=== PATIENT | female | born 2000 | race Caucasian/White ===

== ENCOUNTER 2019-07-03 15:25 | Emergency (ER) | payer SELFPAY ==
[~2019-07-03] VITALS: Ht 177.8 cm; Wt 147.8 kg
--- NOTE | 2019-07-03 15:48 | ED Cough/URI ---
General Chief Complaint: Cough/Cold/Flu Symptoms Stated Complaint: FLU SYMPTOMS Source: patient Exam Limitations: no limitations History of Present Illness Date Seen by Provider: Jul 03, 2019 Time Seen by Provider: 15:35 Initial Comments The patient is a pleasant obese 18-year-old female who presents for evaluation of 2-3 days of fever, nasal congestion, cough, general malaise, bilateral ear discomfort, and a few episodes of nausea and vomiting. She states that she is not currently nauseous. She states that her last fever was yesterday. She was recently exposed to influenza at work and did not receive the vaccination this season. She denies chest pain or shortness of breath, abdominal or back pain, urinary complaints, hematemesis, rectal bleeding, headache, neck pain or neck stiffness, dizziness or syncope. She is alert and oriented 4, calm, and appears to be in no distress this time. Timing/Duration: other (2-3 days) Severity/Quality: dry cough Associated Symptoms: cough, earache, facial pain, fever/chills, muscle aches, nasal congestion, nasal drainage Allergies and Home Medications Allergies Coded Allergies: No Known Drug Allergies (Unverified , 07/03/19) Patient Home Medication List Home Medication List Reviewed: Yes Review of Systems Review of Systems Constitutional: chills, fever EENTM: ear pain Respiratory: cough Cardiovascular: no symptoms reported Gastrointestinal: nausea, vomiting (yesterday, none today) Genitourinary: no symptoms reported Musculoskeletal: no symptoms reported Skin: no symptoms reported Psychiatric/Neurological: No Symptoms Reported Hematologic/Lymphatic: No Symptoms Reported Immunological/Allergic: no symptoms reported All Other Systems Reviewed Negative Unless Noted: Yes Past Cknlfbn-Rixwiy-Epiedb Hx Past Med/Social Hx: Reviewed Nursing Past Med/Soc Hx Patient Social History Alcohol Use: Denies Use Recreational Drug Use: No Smoking Status: Current Everyday Smoker 2nd Hand Smoke Exposure: No Recent Foreign Travel: No Contact w/Someone Who Travel: No Recent Hopitalizations: No Physical Abuse: No Sexual Abuse: No Mistreated: No Fear: No Seasonal Allergies Seasonal Allergies: No Past Medical History Surgeries: No Respiratory: No Cardiac: Yes Hypertension Neurological: No Genitourinary: No Gastrointestinal: No Musculoskeletal: No Endocrine: No HEENT: No Cancer: No Psychosocial: Yes Depression Integumentary: No Blood Disorders: No Physical Exam Vital Signs - First Documented 07/03/19 15:30 Temp 36.0 Pulse 100 Resp 16 B/P (MAP) 152/124 (133) Pulse Ox 98 O2 Delivery Room Air Capillary Refill : Height: '" Weight: lbs. oz. kg; BMI Method: General Appearance: WD/WN, no apparent distress, obese Eyes: Bilateral Eye Normal Inspection, Bilateral Eye PERRL, Bilateral Eye EOMI HEENT: PERRL/EOMI, normal ENT inspection, pharynx normal, TM abnormal (R) (mild erythema, no bulging) Respiratory: chest non-tender, lungs clear, normal breath sounds, no respiratory distress, no accessory muscle use Cardiovascular: no edema, no gallop, no JVD, tachycardia Gastrointestinal: normal bowel sounds, non tender, soft Extremities: normal range of motion, non-tender, normal inspection, no pedal edema Neurologic/Psychiatric: independent consultant II-XII nml as tested, no motor/sensory deficits, alert, normal mood/affect, oriented x 3 Skin: normal color, warm/dry Progress/Results/Core Measures Suspected Sepsis SIRS Temperature: Pulse: Respiratory Rate: Blood Pressure / Mean: Results/Orders Micro Results Microbiology 07/03/19 Influenza Types A,B Antigen (JENNIFER) - Final, Complete My Orders Orders - EMMA VAZQUEZ DO Influenza A And B Antigens (07/03/19 15:35) Vital Signs/I&O 07/03/19 07/03/19 15:30 15:30 Temp 36.0 Pulse 100 Resp 16 B/P (MAP) 152/124 (133) Pulse Ox 98 O2 Delivery Room Air Room Air Capillary Refill : Progress Note : Progress Note @1615 - patient updated on influenza test which is negative. She does have evidence on physical examination of a right-sided otitis media. She'll be prescribed amoxicillin. Advised patient to follow up with her PCP in the next 1- 2 days and to return to the Emergency Department immediately for new or worsening symptoms. Workup today fails to reveal any emergent pathology and the patient is stable for discharge home. Departure Impression Primary Impression: Right otitis media Additional Impression: Flu-like symptoms Disposition: HOME, SELF-CARE Condition: Stable Departure-Patient Inst. Decision time for Depature: 16:18 [facility]: [facility] [place]ructions: Viral Upper Respiratory Infection, Adult (DC), Ear Infections (Otitis Media) Add. Discharge Instructions: Take the prescribed medicine as directed for the ear infection. Your flu test was negative today. Return to the emergency Department immediately for new or worsening symptoms. Follow-up with your doctor in the next 2-3 days. Scripts Amoxicillin (Amoxicillin) 875 Mg Tablet 875 MG PO BID for 10 Days, #20 TAB Prov: EMMA VAZQUEZ DO 07/03/19 EMMA VAZQUEZ DO Jul 03, 2019 15:48
[2019-07-03] MEDS ORDERED: AMOX875T2 PO (16:19)
[2019-07-03 16:29] VITALS: BP 152/124
== END 2019-07-03 16:29 | disposition home or self-care (01) ==
LOC: ER FS 15:27
DX: H66.91 Otitis media, unspecified, right ear (principal); R50.9 Fever, unspecified; R05 Cough; R09.81 Nasal congestion; F17.200 Nicotine dependence, unspecified, uncomplicated
CPT/HCPCS: 87804

== ENCOUNTER 2020-08-22 14:01 | Emergency (ER) | payer SELFPAY ==
[~2020-08-22 14:01] MED LIST: AMOX875T2 PO
== END 2020-08-22 14:16 | disposition left against medical advice (07) ==
LOC: EDUNIT# 14:01 → ER FS 14:03
DX: Z13.39 Encounter for screening examination for other mental health and behavioral disorders (principal)

== ENCOUNTER 2020-08-26 11:40 | Emergency (ER) | payer SELFPAY | END 2020-08-26 11:53 | disposition left against medical advice (07) | LOC: EDUNIT# 11:40 → ER FS 11:51 | DX: R05 Cough (principal) ==

== ENCOUNTER 2020-09-17 20:22 | Emergency (ER) | payer SELFPAY ==
[~2020-09-17] VITALS: Ht 180 cm; Wt 158.0 kg
[2020-09-17 20:30] VITALS: BP 159/99
== END 2020-09-17 20:40 | disposition left against medical advice (07) ==
LOC: EDUNIT# 20:22 → ER 20:24
DX: F99 Mental disorder, not otherwise specified (principal)
CPT/HCPCS: 99283

== ENCOUNTER 2020-10-05 17:25 | Emergency (ER) | payer SELFPAY ==
[2020-10-05 18:00] LABS: BASOPHILS % (AUTO) 0 % (0-10); EOSINOPHILS # (AUTO) 0.1 10^3/uL (0.0-0.3); EOSINOPHILS % (AUTO) 1 % (0-10); HEMATOCRIT 41 % (35-52); HEMOGLOBIN 13.6 G/DL (11.5-16.0); LYMPHOCYTES # (AUTO) 3.2 X 10^3 (1.0-4.0); LYMPHOCYTES % (AUTO) 36 % (12-44); MEAN CORPUSCULAR HEMOGLOBIN 31 PG (25-34); MEAN CORPUSCULAR HGB CONC 33 G/DL (32-36); MEAN CORPUSCULAR VOLUME 94 FL (80-99); MEAN PLATELET VOLUME 10.2 FL (7.4-10.4); MONOCYTES # (AUTO) 0.6 X 10^3 (0.0-1.0); MONOCYTES % (AUTO) 7 % (0-12); NEUTROPHILS # (AUTO) 4.9 X 10^3 (1.8-7.8); NEUTROPHILS % (AUTO) 56 % (42-75); PLATELET COUNT 303 10^3/uL (130-400); WHITE BLOOD COUNT 8.8 10^3/uL (4.3-11.0)
[2020-10-05 18:11] LABS: AMPHETAMINE SCREEN, URINE NEGATIVE (NEGATIVE); BACTERIA,URINE TRACE /HPF; BARBITURATE SCREEN URINE NEGATIVE (NEGATIVE); BENZODIAZEPINES SCREEN URINE NEGATIVE (NEGATIVE); BILIRUBIN,URINE NEGATIVE (NEGATIVE); CANNABINOID SCREEN, URINE POSITIVE (NEGATIVE); CLARITY,URINE CLEAR; COCAINE SCREEN URINE NEGATIVE (NEGATIVE); COLOR,URINE YELLOW; GLUCOSE, URINE (UA) NEGATIVE (NEGATIVE); KETONES,URINE NEGATIVE (NEGATIVE); LEUKOCYTE ESTERASE ,URINE NEGATIVE (NEGATIVE); METHADONE STAT NEGATIVE (NEGATIVE); METHAMPHETAMINE SCREEN URINE S NEGATIVE (NEGATIVE); NITRITE,URINE NEGATIVE (NEGATIVE); OPIATE SCREEN URINE NEGATIVE (NEGATIVE); OXYCODONE STAT NEGATIVE (NEGATIVE); PH,URINE 7.5 (5-9); PROPOXYPHENE STAT NEGATIVE (NEGATIVE); PROTEIN,URINE NEGATIVE (NEGATIVE); TRICYCLIC ANTIDEPRESSANTS SCRE NEGATIVE (NEGATIVE); WBC,URINE 0-2 /HPF
[2020-10-05 18:21] LABS: ALANINE AMINOTRANSFERASE 15 U/L (0-55); ALKALINE PHOSPHATASE 83 U/L (40-136); BILIRUBIN,TOTAL 0.2 MG/DL (0.1-1.0); BUN/CREATININE RATIO 10; CALCIUM 8.6 MG/DL (8.5-10.1); CARBON DIOXIDE 26 MMOL/L (21-32); CHLORIDE 105 MMOL/L (98-107); CREATININE SERUM 0.67 MG/DL (0.60-1.30); GFR ESTIMATED > 60; GLUCOSE 101 MG/DL (70-105); POTASSIUM 3.7 MMOL/L (3.6-5.0); SODIUM 142 MMOL/L (135-145); TOTAL PROTEIN 6.6 GM/DL (6.4-8.2)
--- NOTE | 2020-10-05 20:08 | ED General ---
General Chief Complaint: Psych/Social Disorder Stated Complaint: SUICIDAL IDEATION Nursing Triage Note: Patient is present with aunt. States she has been having suicidal thoughts as well as having thoughts of harming others. Is not currently having SI or HI. These feelings have been getting worse over the past 4-5 months since using bad meth. States she feels "like I am on [place]" and"like I am already ." Also states when it is dark she "feels like something is trying to come out of my body" and that she "is supposed to go into the darkness." Has a remote hx of attempted overdose that did not require medical treatment. Does not currently have a therapist or psychiatrist but has an appointment on 10/18 with [facility]. Has hx of bipolar but has not been on meds recently. Nursing Sepsis Screen: No Definite Risk Source of Information: Patient Exam Limitations: No Limitations History of Present Illness Date Seen by Provider: October 05, 2020 Time Seen by Provider: 15:30 Initial Comments Patient is a 19-year-old female who presents with suicidal thoughts. She has thoughts of harming herself but does not have a specific plan. She has also had thoughts of hurting others but does not have a specific plan. She reports conflict with her mother. She states over the past 4 to 5 months she has been using methamphetamines and having visual hallucinations. She also feels as though she feels her flashes . She denies auditory hallucinations, paranoia and command hallucinations. No recent medical illness. Reports methamphetamine and marijuana use in the past several days. Timing/Duration: 12-24 Hours Severity: Moderate Modifying Factors: improves with Other Associated Systoms: Other Allergies and Home Medications Allergies Coded Allergies: No Known Drug Allergies (Unverified , 07/03/19) Home Medications Amoxicillin 875 Mg Tablet, 875 MG PO BID Prescribed by: EMMA VAZQUEZ on 07/03/19 1619 Patient Home Medication List Home Medication List Reviewed: Yes Review of Systems Review of Systems Constitutional: see HPI EENTM: see HPI Respiratory: see HPI Cardiovascular: see HPI Gastrointestinal: see HPI Genitourinary: see HPI Musculoskeletal: see HPI Skin: see HPI Psychiatric/Neurological: See HPI Hematologic/Lymphatic: See HPI Immunological/Allergic: see HPI All Other Systems Reviewed Negative Unless Noted: Yes Past Mgeimzk-Xeotcd-Jziqvi Hx Past Med/Social Hx: Reviewed Nursing Past Med/Soc Hx Patient Social History Alcohol Use: Occasionally Uses Drug of Choice: CANNIBUS/METH Smoking Status: Current Everyday Smoker Type Used: Cigarettes 2nd Hand Smoke Exposure: No Recent Infectious Disease Expo: No Recent Hopitalizations: No Immunizations Up To Date Tetanus Booster (TDap): Unknown Seasonal Allergies Seasonal Allergies: No Past Medical History Surgeries: No Respiratory: No Cardiac: Yes Hypertension Neurological: No Genitourinary: No Gastrointestinal: No Musculoskeletal: No Endocrine: No HEENT: No Cancer: No Psychosocial: Yes Bipolar, Depression Integumentary: No Blood Disorders: No Physical Exam Vital Signs Vital Signs - First Documented 10/05/20 17:29 Temp 36.3 Pulse 104 Resp 16 B/P (MAP) 151/100 (117) Pulse Ox 99 Capillary Refill : Less Than 3 Seconds Height, Weight, BMI Height: '" Weight: lbs. oz. kg; BMI Method: General Appearance: Anxious Eyes: Bilateral Eye Normal Inspection, Bilateral Eye PERRL, Bilateral Eye EOMI HEENT: PERRL/EOMI, TMs Normal, Pharynx Normal Neck: Full Range of Motion, Non Tender, Supple Respiratory: Lungs Clear Cardiovascular: Regular Rate, Rhythm Gastrointestinal: Non Tender, Soft Back: Normal Inspection, No CVA Tenderness Neurologic/Psychiatric: Alert, Oriented x3 Skin: Normal Color, Warm/Dry Focused Exam Sepsis Stage: Ruled Out Progress/Results/Core Measures Suspected Sepsis Recent Fever Within 48 Hours: No Infection Criteria Present: None New/Unexplained Altered Menta: No Sepsis Screen: No Definite Risk SIRS Temperature: Pulse: 104 Respiratory Rate: 16 Laboratory Tests 10/05/20 17:55: White Blood Count 8.8 Blood Pressure 151 /100 Mean: 117 Laboratory Tests 10/05/20 17:55: Creatinine 0.67, Platelet Count 303, Total Bilirubin 0.2 Results/Orders Lab Results Laboratory Tests Test 10/05/20 17:50 10/05/20 17:55 Range/Units Urine Color YELLOW Urine Clarity CLEAR Urine pH 7.5 5-9 Urine Specific [place] 1.015 L 1.016-1.022 Urine Protein NEGATIVE NEGATIVE Urine Glucose (UA) NEGATIVE NEGATIVE Urine Ketones NEGATIVE NEGATIVE Urine Nitrite NEGATIVE NEGATIVE Urine Bilirubin NEGATIVE NEGATIVE Urine Urobilinogen 0.2 < = 1.0 MG/DL Urine Leukocyte Esterase NEGATIVE NEGATIVE Urine RBC (Auto) NEGATIVE NEGATIVE Urine RBC NONE /HPF Urine WBC 0-2 /HPF Urine Squamous Epithelial Cells 2-5 /HPF Urine Crystals NONE /LPF Urine Bacteria TRACE /HPF Urine Casts NONE /LPF Urine Mucus SMALL H /LPF Urine Culture Indicated NO Urine Opiates Screen NEGATIVE NEGATIVE Urine Oxycodone Screen NEGATIVE NEGATIVE Urine Methadone Screen NEGATIVE NEGATIVE Urine Propoxyphene Screen NEGATIVE NEGATIVE Urine Barbiturates Screen NEGATIVE NEGATIVE Ur Tricyclic Antidepressants Screen NEGATIVE NEGATIVE Urine Phencyclidine Screen NEGATIVE NEGATIVE Urine Amphetamines Screen NEGATIVE NEGATIVE Urine Methamphetamines Screen NEGATIVE NEGATIVE Urine Benzodiazepines Screen NEGATIVE NEGATIVE Urine Cocaine Screen NEGATIVE NEGATIVE Urine Cannabinoids Screen POSITIVE H NEGATIVE White Blood Count 8.8 4.3-11.0 10^3/uL Red Blood Count 4.35 4.35-5.85 10^6/uL Hemoglobin 13.6 11.5-16.0 G/DL Hematocrit 41 35-52 % Mean Corpuscular Volume 94 80-99 FL Mean Corpuscular Hemoglobin 31 25-34 PG Mean Corpuscular Hemoglobin Concent 33 32-36 G/DL Red Cell Distribution Width 13.0 10.0-14.5 % Platelet Count 303 130-400 10^3/uL Mean Platelet Volume 10.2 7.4-10.4 FL Immature Granulocyte % (Auto) 0 % Neutrophils (%) (Auto) 56 42-75 % Lymphocytes (%) (Auto) 36 12-44 % Monocytes (%) (Auto) 7 0-12 % Eosinophils (%) (Auto) 1 0-10 % Basophils (%) (Auto) 0 0-10 % Neutrophils # (Auto) 4.9 1.8-7.8 X 10^3 Lymphocytes # (Auto) 3.2 1.0-4.0 X 10^3 Monocytes # (Auto) 0.6 0.0-1.0 X 10^3 Eosinophils # (Auto) 0.1 0.0-0.3 10^3/uL Basophils # (Auto) 0.0 0.0-0.1 10^3/uL Immature Granulocyte # (Auto) 0.0 0.0-0.1 10^3/uL Sodium Level 142 135-145 MMOL/L Potassium Level 3.7 3.6-5.0 MMOL/L Chloride Level 105 98-107 MMOL/L Carbon Dioxide Level 26 21-32 MMOL/L Anion Gap 11 5-14 MMOL/L Blood Urea Nitrogen 7 7-18 MG/DL Creatinine 0.67 0.60-1.30 MG/DL Estimat Glomerular Filtration Rate > 60 BUN/Creatinine Ratio 10 Glucose Level 101 70-105 MG/DL Calcium Level 8.6 8.5-10.1 MG/DL Corrected Calcium 8.6 8.5-10.1 MG/DL Total Bilirubin 0.2 0.1-1.0 MG/DL Aspartate Amino Transf (AST/SGOT) 11 5-34 U/L Alanine Aminotransferase (ALT/SGPT) 15 0-55 U/L Alkaline Phosphatase 83 40-136 U/L Total Protein 6.6 6.4-8.2 GM/DL Albumin 4.0 3.2-4.5 GM/DL Serum Alcohol < 10 <10 MG/DL My Orders Orders - JOSEF MCKEON DO Cbc With Automated Diff (10/05/20 17:49) Comprehensive Metabolic Panel (10/05/20 17:49) Ekg-Prn For Chest Pain Or Rhyt (10/05/20 17:49) Drug Screen Stat (Urine) (10/05/20 17:49) Alcohol (10/05/20 17:49) Urinalysis (10/05/20 17:49) Urine Bedside (10/05/20 17:49) Vital Signs/I&O 10/05/20 17:29 Temp 36.3 Pulse 104 Resp 16 B/P (MAP) 151/100 (117) Pulse Ox 99 Capillary Refill : Less Than 3 Seconds Blood Pressure Mean: 117 Departure Communication (Admissions) Patient medically cleared. Awaiting psychiatric counselor for recommendations. Home safety plan recommended and reviewed with patient who agrees to follow. Outpatient follow-up recommended. Return precautions reviewed. Patient verbalizes understanding agreement discharge instructions prior to departure. Impression Primary Impression: Mood disorder Additional Impression: Substance abuse Disposition: HOME, SELF-CARE Condition: Stable Departure-Patient Inst. Decision time for Depature: 21:43 Referrals: NO,LOCAL PHYSICIAN (PCP/Family) Primary Care Physician Patient Instructions: Marijuana Use and Addiction (DC), Depression, Adult ED Add. Discharge Instructions: Please follow the care instructions provided to you in this home safety plan and follow-up with outpatient mental health professional. Return to the ED if you develop new or worsening symptoms. All discharge instructions reviewed with patient and/or family. Voiced understanding. JOSEF MCKEON DO October 05, 2020 20:08
[2020-10-05 21:48] VITALS: BP 121/64
== END 2020-10-05 21:48 | disposition home or self-care (01) ==
LOC: EDUNIT# 17:25 → ER FS 17:27
DX: F39 Unspecified mood [affective] disorder (principal); F19.10 Other psychoactive substance abuse, uncomplicated; I10 Essential (primary) hypertension; F31.9 Bipolar disorder, unspecified; F17.210 Nicotine dependence, cigarettes, uncomplicated
CPT/HCPCS: 36415; 80053; 80306; 81000; 84703; 85025; 93005; 99283; G0480; 80320

== ENCOUNTER → 2021-01-28 | Outpatient (CLI) | payer OTHER ==
--- NOTE | 2021-01-28 10:52 | Diagnostic Imaging Report ---
Indication: Left hand pain. Follow-up of trauma. There is a mildly impacted and angulated fracture of the distal 5th metacarpal shaft. There is callus formation present though fracture line is still quite visible. The MP joint appears normal with smooth surfaces. The remainder of the hand is normal. IMPRESSION: Mildly impacted and angulated fracture distal 5th metacarpal with callus formation present though fracture line still remains quite prominent. Dictated by: Dictated on workstation # [id number]
== END ==
LOC: RAD FS 10:36
PROVIDERS: ATTEND Nurse Practitioner
DX: S62.307A Unspecified fracture of fifth metacarpal bone, left hand, initial encounter for closed fracture (principal); X58.XXXA Exposure to other specified factors, initial encounter
CPT/HCPCS: 73130

== ENCOUNTER 2022-10-16 09:49 | Emergency (ER) | payer SELFPAY ==
[~2022-10-16] VITALS: Ht 180.3 cm; Wt 120.5 kg
[2022-10-16 09:52] VITALS: BP 159/96
--- NOTE | 2022-10-16 10:07 | ED General ---
General Chief Complaint: Skin/Wound Problems Stated Complaint: SORES Source of Information: Patient Exam Limitations: No Limitations History of Present Illness Date Seen by Provider: Oct 16, 2022 Time Seen by Provider: 09:50 Initial Comments 21-year-old female with past medical history of polysubstance use disorder coming in due to feeling like she has tics and bugs crawling all over her skin. She states she snorted meth yesterday, and has felt this way since then. Denies any chest pain, shortness of breath, abdominal pain, nausea, vomiting, diarrhea, fever, chills, weakness, numbness, or any other concerns. This does typically happen after she uses meth. Denies any thoughts to hurt herself or hurt anyone else. Allergies and Home Medications Allergies Coded Allergies: No Known Drug Allergies (Unverified , 07/03/19) Patient Home Medication List Home Medication List Reviewed: Yes Amoxicillin (Amoxicillin) 875 Mg Tablet, 875 MG PO BID Prescribed by: EMMA VAZQUEZ on 07/03/19 7499 Review of Systems Review of Systems Constitutional: No fever EENTM: no symptoms reported Respiratory: no symptoms reported Cardiovascular: no symptoms reported Gastrointestinal: no symptoms reported Genitourinary: no symptoms reported Skin: see HPI Psychiatric/Neurological: See HPI Past Duwrtpy-Colvxm-Lvqizn Hx Patient Social History Substance use?: Yes Substance type: Methamphetamine Immunizations Up To Date Tetanus Booster (TDap): Unknown Seasonal Allergies Seasonal Allergies: No Past Medical History Surgeries: No Respiratory: No Cardiac: Yes Hypertension Neurological: No Genitourinary: No Gastrointestinal: No Musculoskeletal: No Endocrine: No HEENT: No Cancer: No Psychosocial: Yes Bipolar, Depression Integumentary: No Blood Disorders: No Physical Exam Vital Signs Capillary Refill : Height, Weight, BMI Height: '" Weight: lbs. oz. kg; BMI Method: General Appearance: Other (Fidgeting, scratching herself) Eyes: Bilateral Eye Normal Inspection, Bilateral Eye PERRL HEENT: PERRL/EOMI, Normal ENT Inspection, Pharynx Normal Neck: Full Range of Motion, Normal Inspection, Non Tender, Supple Respiratory: Chest Non Tender, Lungs Clear, Normal Breath Sounds, No Accessory Muscle Use, No Respiratory Distress Cardiovascular: Regular Rate, Rhythm, No Edema, Normal Peripheral Pulses Gastrointestinal: Normal Bowel Sounds, Non Tender, Soft; No Distended, No Guarding Back: Normal Inspection, No CVA Tenderness Extremity: Normal Capillary Refill, Normal Range of Motion, Non Tender, No Calf Tenderness, No Pedal Edema, Other (Excoriations on skin in random areas where she can reach) Neurologic/Psychiatric: Alert, Oriented x3, No Motor/Sensory Deficits Skin: Warm/Dry Progress/Results/Core Measures Suspected Sepsis SIRS Temperature: Pulse: Respiratory Rate: Blood Pressure / Mean: Results/Orders Vital Signs/I&O Capillary Refill : Progress Note : Progress Note 21-year-old female with above history coming in due to the sensation of bugs on her after using methamphetamines. ABCs were intact and vitals were stable on presentation. Physical exam consistent with her scratching her skin but nothing looks infected. She is not suicidal or homicidal, does not need emergent psychiatric evaluation. She does have someone that drove her and can be with h er. I will give her olanzapine here as well as hydroxyzine to help with the itching and side effects of the methamphetamines. I otherwise believe she is stable for discharge with outpatient follow-up. She was sent home with strict return precautions Departure Impression Primary Impression: Formication Additional Impression: Methamphetamine use Disposition: HOME, SELF-CARE Condition: Stable Departure-Patient Inst. Decision time for Depature: 10:15 Referrals: NO,LOCAL PHYSICIAN (PCP/Family) Primary Care Physician Patient Instructions: Methamphetamine Add. Discharge Instructions: The symptoms you are feeling are due to the methamphetamine use. They should go away as the meth gets out of your system. The medicines we gave you would likely help with the symptoms, but they may make you sleepy. We recommend going home and resting. Be sure to try to eat and drink as well today. Work/School Note: Work Release Form Date Seen in the Emergency Department: Oct 16, 2022 Return to Work: Oct 17, 2022 Restrictions: No Restrictions ALEXANDRA EVANS MD Oct 16, 2022 10:07
[2022-10-16] MEDS ORDERED: OLANZapine 5 MG ODT (ZyPREXA ZYDIS) PO ONE (10:15)
[2022-10-16] MEDS ORDERED: hydrOXYzine (VISTARIL/ATARAX) 25 MG capsule/tablet PO ONE (10:15)
== END 2022-10-16 10:45 | disposition home or self-care (01) ==
LOC: EDUNIT# 09:49 → ER FS 09:50
DX: R20.2 Paresthesia of skin (principal); F15.90 Other stimulant use, unspecified, uncomplicated
CPT/HCPCS: 99283

== ENCOUNTER 2022-11-04 14:38 | Emergency (ER) | payer SELFPAY | END 2022-11-04 14:45 | disposition left against medical advice (07) | LOC: EDUNIT# 14:38 → ER FS 14:39 | DX: L98.9 Disorder of the skin and subcutaneous tissue, unspecified (principal) ==

== ENCOUNTER 2022-11-06 12:39 | Emergency (ER) | payer SELFPAY ==
[~2022-11-06] VITALS: Ht 183 cm; Wt 137.0 kg
[2022-11-06] MEDS ORDERED: OLANZapine 5 MG ODT (ZyPREXA ZYDIS) PO ONE (13:00)
[2022-11-06] MEDS ORDERED: hydrOXYzine (VISTARIL/ATARAX) 25 MG capsule/tablet PO ONE (13:00)
--- NOTE | 2022-11-06 13:00 | ED General ---
General Chief Complaint: Skin/Wound Problems Stated Complaint: SORES Nursing Triage Note: Patient has presented to ER with cc of scatters sores on her body. She is scratching and very restless. She reports cleaning the sores with bleach. She has no shoes on and feet are very dirty and she reports that she has been putting bleach on the sores of her feet. She reports using meth last night. Source of Information: Patient Exam Limitations: No Limitations History of Present Illness Date Seen by Provider: Nov 06, 2022 Time Seen by Provider: 12:45 Initial Comments 21-year-old female with polysubstance use disorder coming in due to scattered sores on her body. She has been scratching them, feels like she has bugs on her. She has tried to clean some of them with bleach. She did use methamphetamines last night. This did occur about a year ago when she used meth as well. Allergies and Home Medications Allergies Coded Allergies: No Known Drug Allergies (Unverified , 07/03/19) Patient Home Medication List Home Medication List Reviewed: Yes Amoxicillin (Amoxicillin) 875 Mg Tablet, 875 MG PO BID Prescribed by: EMMA VAZQUEZ on 07/03/19 4719 Review of Systems Review of Systems Constitutional: No fever EENTM: no symptoms reported Respiratory: no symptoms reported Cardiovascular: no symptoms reported Gastrointestinal: no symptoms reported Genitourinary: no symptoms reported Skin: see HPI Psychiatric/Neurological: See HPI Past Mgqtsyc-Syhhcq-Zfwvjv Hx Patient Social History Tobacco Use?: Yes Tobacco type used: Cigarettes Smoking Status: Current Everyday Smoker Substance use?: Yes Substance type: Methamphetamine Alcohol Use?: No Immunizations Up To Date Tetanus Booster (TDap): Unknown Seasonal Allergies Seasonal Allergies: No Past Medical History Surgeries: No Respiratory: No Cardiac: Yes Hypertension Neurological: No Genitourinary: No Gastrointestinal: No Musculoskeletal: No Endocrine: No HEENT: No Cancer: No Psychosocial: Yes Bipolar, Depression Integumentary: No Blood Disorders: No Physical Exam Vital Signs Vital Signs - First Documented 11/06/22 12:47 Temp 36.1 Pulse 103 Resp 16 B/P (MAP) 151/90 (110) Pulse Ox 96 O2 Delivery Room Air Capillary Refill : Height, Weight, BMI Height: '" Weight: lbs. oz. kg; 40.00 BMI Method: General Appearance: WD/WN, Other (Fidgety) Eyes: Bilateral Eye Normal Inspection HEENT: PERRL/EOMI, Normal ENT Inspection, Pharynx Normal Neck: Full Range of Motion, Normal Inspection, Non Tender, Supple Respiratory: Chest Non Tender, Lungs Clear, Normal Breath Sounds, No Accessory Muscle Use, No Respiratory Distress Cardiovascular: Regular Rate, Rhythm, No Edema, Normal Peripheral Pulses Gastrointestinal: Normal Bowel Sounds, Non Tender, Soft; No Distended, No Guarding Back: Normal Inspection, No CVA Tenderness Extremity: Normal Capillary Refill, Normal Range of Motion, Non Tender, No Calf Tenderness, No Pedal Edema Neurologic/Psychiatric: Alert, No Motor/Sensory Deficits Skin: Normal Color, Warm/Dry, Other (Multiple areas of excoriations of skin picking, no obvious bug bites or abscess, one of the wounds on her left forearm with increasing redness compared to the others, could be early cellulitic changes, her back is clear of any wounds which she cannot reach) Progress/Results/Core Measures Suspected Sepsis SIRS Temperature: Pulse: 103 Respiratory Rate: 16 Blood Pressure 151 /90 Mean: 110 Results/Orders My Orders Orders - ALEXANDRA EVANS MD Olanzapine Orally Dissolve Tab (Zyprexa (11/06/22 13:00) Hydroxyzine Cap/Tab (Vistaril) (11/06/22 13:00) Vital Signs/I&O 11/06/22 12:47 Temp 36.1 Pulse 103 Resp 16 B/P (MAP) 151/90 (110) Pulse Ox 96 O2 Delivery Room Air Capillary Refill : Blood Pressure Mean: 110 Progress Note : Progress Note 21-year-old female presenting after using meth and feeling like she has bugs crawling on her. ABCs were intact and vitals were stable on presentation. Physical exam with multiple areas of excoriation. There is 1 wound on her left forearm with may be early cellulitic changes. We will start her on Keflex. The se are unfortunately the symptoms of methamphetamine use that the patient has had in the past as well. We will give her Zyprexa as well as hydroxyzine here to help with the symptoms. I believe she is otherwise stable for discharge with outpatient follow-up. She was sent home with strict return precautions. Departure Impression Primary Impression: Formication Additional Impression: Methamphetamine use Disposition: HOME, SELF-CARE Condition: Stable Departure-Patient Inst. Decision time for Depature: 13:15 Referrals: [facility] [place],LOCAL PHYSICIAN (PCP) Primary Care Physician Patient Instructions: Wound Care (DC) Add. Discharge Instructions: These wounds on your skin are from picking at your skin unfortunately. This is a known side effect of meth use that will get better when it gets out of your system. It can get worse if you have repeat use. None of them look terribly infected, they just look like fresh wounds. There was one on her left forearm that was slightly more red and could be an early infection. We will start you on an antibiotic mostly just in case since you have multiple open wounds. Scripts Cephalexin (Cephalexin) 500 Mg Tablet 500 MG PO TID for 7 Days, #21 TAB Prov: ALEXANDRA EVANS MD 11/06/22 Work/School Note: Work Release Form Date Seen in the Emergency Department: Nov 06, 2022 Return to Work: Nov 07, 2022 Restrictions: No Restrictions ALEXANDRA EVANS MD Nov 06, 2022 13:00
[2022-11-06] MEDS ORDERED: CEPH500T PO (13:08)
[2022-11-06 13:11] VITALS: BP 151/90
== END 2022-11-06 13:11 | disposition home or self-care (01) ==
LOC: EDUNIT# 12:39 → ER FS 12:40
DX: R20.2 Paresthesia of skin (principal); F15.90 Other stimulant use, unspecified, uncomplicated; F42.4 Excoriation (skin-picking) disorder; F17.210 Nicotine dependence, cigarettes, uncomplicated
CPT/HCPCS: 99283